=== PATIENT | female | born 1970 | race Hispanic/Latino ===

== ENCOUNTER 2018-01-23 14:49 | Emergency (ER) | payer BC, OTHER ==
--- NOTE | 2018-01-23 16:19 | ED PDOC ---
Arrival/HPI <Arcadio James - Last Filed: 01/23/18 18:06> - History of Present Illness Narrative History of Present Illness (Text): This is a 47 year old female with PMH of sciatica, bronchitis with season changes who presents to the ED for right calf extremity pain since waking up at 7 am this morning. Pain is described as a estefania horse in the right lateral calf, worsened by walking, alleviated by laying on the left side. Pt states that she pulled her right back approximately 2 months ago, and has been dealing with sciatica pain (right posterior thigh pain) since then. She has been going to the chiropractor, having massages and accupuncture to the back and leg. She admits to having accupuncture to the right lateral calf. Pt's back and thigh pain caused her to go to her PMD 2 days ago, when she was prescribed Flexeril 5 mg PO. She has been taking the Flexeril and Aleve with good control of back pain and leg pain, and was doing fine until waking up with this calf pain this morning. Pt also reports having an episode of shortness of breath while sitting 2 nights ago. Pt states that she took her Flonase and claritin with relief of sob, and has not had recurrence since. She does admit to having to clear her throat due to phlegm. No cough. Pt denies trauma, swelling to the area, erythema to the area, visual changes, headache, fever, chills, chest pain, palpitations, abdominal pain, n/v/d, recent travel, car rides longer than 1 hour, prolonged immobility, hormone therapy, clotting problems in the past, bleeding problems in the past. PMD: [facility] PMH: sciatica, bronchitis with season changes PSH: cholecystectomy 20 years ago, c/s x 2 (1990, 1995) Meds: Flexeril 5 mg PO daily, Claritin, Flonase, Aleve, Vitamins Allx: none Social hx: (+) etoh, (+) former smoker quit 3 years ago, (-) illicit drug use Time/Duration: Other (since 7 am) Symptom Onset: Sudden Symptom Course: Intermittent Quality: Other (like a estefania horse) Context: Walking (worse with) <Kee Farias - Last Filed: 01/23/18 18:15> - General Chief Complaint: Lower Extremity Problem/Injury Time Seen by Provider: 01/23/18 15:11 Past Medical History - Provider Review Nursing Documentation Reviewed: Yes - Psychiatric Hx Substance Use: No <Kee Farias - Last Filed: 01/23/18 18:15> Family/Social History - Physician Review Nursing Documentation Reviewed: Yes Family/Social History: Unknown Family HX Smoking Status: Never Smoked Hx Alcohol Use: Yes Frequency of alcohol use: Socially Hx Substance Use: No <Kee Farias - Last Filed: 01/23/18 18:15> Allergies/Home Meds <Arcadio James - Last Filed: 01/23/18 18:06> <Kee Farias - Last Filed: 01/23/18 18:15> Allergies/Adverse Reactions: Allergies No Known Allergies Allergy (Verified 01/23/18 15:47) Home Medications: Home Meds Medication Instructions Recorded Confirmed Cyclobenzaprine [Flexeril] 5 mg PO DAILY 01/23/18 01/23/18 Review of Systems - Review of Systems Constitutional: Normal Eyes: Normal ENT: Normal, Other (phlegm) Respiratory: SOB (see HPI) Cardiovascular: Normal Gastrointestinal: Normal Musculoskeletal: Back Pain, Other (sciatica) Skin: Normal Neurological: Normal Hemo/Lymphatic: Normal, Other (no clotting problems). absent: Easy Bleeding, Easy Bruising <Kee Farias - Last Filed: 01/23/18 18:15> Physical Exam Vital Signs Temp Pulse Resp BP Pulse Ox 01/23/18 15:45 98.1 F 88 18 99/65 L 98 <Arcadio James - Last Filed: 01/23/18 18:06> Vital Signs Reviewed: Yes Vital Signs Temp Pulse Resp BP Pulse Ox 01/23/18 15:45 98.1 F 88 18 99/65 L 98 Temperature: Afebrile Blood Pressure: Hypotensive (repeat BP at time of evaluation is 120/66) Pulse: Regular Respiratory Rate: Normal Appearance: Positive for: Well-Appearing, Non-Toxic Pain Distress: None Mental Status: Positive for: Alert and Oriented X 3 - Systems Exam Head: Present: Atraumatic, Normocephalic Extroacular Muscles: Present: EOMI Ears: Present: NORMAL TM. No: Erythema Mouth: Present: Moist Mucous Membranes Pharnyx: Present: ERYTHEMA. No: EXUDATE, TONSILS ENLARGED Neck: Present: Normal Range of Motion Respiratory/Chest: Present: Clear to Auscultation. No: Respiratory Distress, Wheezes, Rales, Rhonchi, Tachypneic Cardiovascular: Present: Regular Rate and Rhythm, Normal S1, S2, Peripheal Pulses Present (2+ bilateral radial pulses, 2+ bilateral DP pulses). No: Irregular Rhythm, Tachycardic Abdomen: Present: Normal Bowel Sounds. No: Tenderness, Distention, Peritoneal Signs, Rebound, Guarding Back: Present: Normal Inspection, Paraspinal Tenderness (right lumbar p aravertebral hypertonicity and tenderness), Pain with Leg Raise (right back pain). No: CVA Tenderness Upper Extremity: Present: Normal Inspection, NORMAL PULSES Lower Extremity: Present: Normal Inspection, NORMAL PULSES, Normal ROM ((+) hypertonicity to the right lateral calf, without tenderness, erythem or swelling), Neurovascularly Intact, Other. No: Edema, CALF TENDERNESS, Miesha's Sign, Tenderness, Swelling, Erythema, Temperature Abnormalties Neurological: Present: GCS=15, Speech Normal, Motor Func Grossly Intact Skin: Present: Warm, Dry Psychiatric: Present: Alert, Oriented x 3 <Kee Farias - Last Filed: 01/23/18 18:15> Medical Decision Making ED Course and Treatment: 01/23/18 16:36 Seen and examined with the resident. Our history and physical exam reveals a young woman complaining of a 2 month history of low back pain. The pain radiates into her right lateral calf. She did have some shortness of breath at rest several days ago. Therefore, we will obtain a Doppler to rule out DVT. I believe this represents sciatica. She did see her PMD last week and was given Flexeril with some improvement., The pain became worse today. 01/23/18 18:07 Symptoms improved post Toradol. Patient has a prescription for an MRI from her PMD . She will continue the Flexeril and we will add Naprosyn. - RAD Interpretation Radiology Orders: 01/23/18 16:09 DUPLEX LOWER EXTRM VEIN RIGHT [US] Stat Venous Doppler as read by the radiologist as negative for DVT. Drop Hammer Operator Helper: Radiologist - Medication Orders Current Medication Orders: Discontinued Medications Ketorolac Tromethamine (Toradol) 60 mg IM STAT STA Stop: 01/23/18 16:10 <Arcadio James - Last Filed: 01/23/18 18:06> ED Course and Treatment: right calf pain since this morning. History of back strain and sciatica, but with nonprovoked single episode of sob. Will do right lower extremity duplex r/o DVT. Toradol 60 mg IM for pain. 01/23/18 17:29 Prelim right lower extremity doppler is negative. Reassessment Condition: Re-examined, Improved - RAD Interpretation Radiology Orders: 01/23/18 16:09 DUPLEX LOWER EXTRM VEIN RIGHT [US] Stat - Medication Orders Current Medication Orders: Ketorolac Tromethamine (Toradol) 60 mg IM STAT STA Stop: 01/23/18 16:10 <Kee Farias - Last Filed: 01/23/18 18:15> Disposition/Present on Arrival - Present on Arrival Any Indicators Present on Arrival: No History of DVT/PE: No History of Uncontrolled Diabetes: No Urinary Catheter: No History of Decub. Ulcer: No - Disposition Have Diagnosis and Disposition been Completed?: Yes Disposition Time: 18:07 Patient Plan: Discharge <Arcadio James - Last Filed: 01/23/18 18:06> - Present on Arrival History of DVT/PE: No History of Uncontrolled Diabetes: No Urinary Catheter: No History of Decub. Ulcer: No History Surgical Site Infection Following: None <Kee Farias - Last Filed: 01/23/18 18:15> - Disposition Diagnosis: Sciatica of right side Discharge Instructions (ExitCare): Sciatica Additional Instructions: MRI as prescribed by PMD. Follow up in ER as needed. Prescriptions: Naproxen [Naprosyn] 500 mg PO BID #14 tab Referrals: Elio Dye MD [Primary Care Provider] - Follow up with primary Forms: [employer] ([place])
[2018-01-24 08:19] VITALS: RESP 17; TEMP 98
[2018-01-24 08:21] VITALS: BP 100/62; PULSE 66; O2SAT 97
--- NOTE | 2018-01-25 14:22 | US ---
PROCEDURE: Right lower extremity venous US HISTORY: Leg pain and swelling. Evaluate for DVT. PHYSICIAN(S): August Ortega M.D. TECHNIQUE: Duplex sonography and color-flow Doppler with graded compression were used to evaluate the deep venous system of the right lower extremity. FINDINGS: The visualized deep venous system of the right lower extremity is sonographically normal and compressible. Normal waveforms and augmentation are seen. There is no sonographic evidence for deep venous thrombosis in the visualized segments of the right lower extremity. IMPRESSION: 1. No sonographic evidence for deep venous thrombosis in the visualized segments of the right lower extremity.
== END 2018-01-23 18:25 | disposition home or self-care (01) ==
LOC: ED 14:49
DX: M54.31 Sciatica, right side (principal); Z87.891 Personal history of nicotine dependence
CPT/HCPCS: 93971; 96372; 99283; J1885